=== PATIENT | male | born 2000 | race Caucasian/White ===

== ENCOUNTER 2024-06-18 19:00 | Emergency (ER) | payer SELFPAY ==
[2024-06-18 19:18] VITALS: BP 119/86; PULSE 77; RESP 16; TEMP 36.8; O2SAT 98; BMI 21.1
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
[2024-06-18 21:04] VITALS: BP 128/83; PULSE 75; RESP 16; O2SAT 96
== END 2024-06-18 21:09 | disposition home or self-care (01) ==
PROVIDERS: Emergency Provider Family Medicine; PCP Family Medicine
DX: S16.1XXA Strain of muscle, fascia and tendon at neck level, initial encounter (principal); V43.52XA Car driver injured in collision with other type car in traffic accident, initial encounter
CPT/HCPCS: 72125; 99283; 99284